=== PATIENT | male | born 1975 | race Caucasian/White ===

== ENCOUNTER 2020-05-29 05:54 | Inpatient (IN) | payer MEDICAID ==
[~2020-05-29] VITALS: Ht 167.6 cm; Wt 81.6 kg
[2020-05-29] MEDS ORDERED: SODIUM CHLORIDE 0.9% 1,000 ML IV ONE ×2 (06:35)
[2020-05-29] MEDS ORDERED: OCTREOTIDE ACETATE 50 MCG/ML 1ML IV STA (06:35)
[2020-05-29] MEDS ORDERED: PANTOPRAZOLE SODIUM 40 MG/VIAL IV STA (06:35)
[2020-05-29] MEDS ORDERED: PANTOPRAZOLE 80 MG in SODIUM CHLORIDE 0.9% 100 ML IV STA (06:35)
[2020-05-29] MEDS ORDERED: OCTREOTIDE 1,000 MCG in SODIUM CHLORIDE 0.9% 100 ML IV STA (06:35)
[2020-05-29] MEDS ORDERED: OCTREOTIDE 1,000 MCG in SODIUM CHLORIDE 0.9% 98 ML IV ONE (06:45)
[2020-05-29] MEDS ORDERED: PANTOPRAZOLE 80 MG in SODIUM CHLORIDE 0.9% 100 ML IV ONE (07:00)
[2020-05-29 07:15] LABS: BASOPHILS % 0.6 % (0.0-2.0); EOSINOPHILS % 0.6 % (0.0-5.0); HEMATOCRIT. 26.7 % (42.0-52.0); HEMOGLOBIN. 9.5 g/dL (14.0-18.0); LYMPHOCYTES % 12.7 % (20.0-50.0); MEAN CORPUSCULAR VOLUME 93.1 fL (80.0-94.0); MONOCYTES % 6.1 % (2.0-8.0); PLATELET 287 x1000/uL (130-400); RED BLOOD CELL COUNT 2.87 mill/uL (4.7-6.1); RED CELL DISTRIBUTION WIDTH 13.5 % (11.6-14.6)
[2020-05-29 07:17] LABS: CHLORIDE 104 mEq/L (98-107)
[2020-05-29 07:20] LABS: INR 1.2; PROTHROMBIN TIME 12.6 sec (9.6-11.0)
[2020-05-29 07:22] LABS: ETHANOL BLOOD < 10 mg/dL
[2020-05-29] MEDS ORDERED: ONDANSETRON HCL 4MG/2ML INJ IV PRN (09:45)
[2020-05-29] MEDS ORDERED: MORPHINE SULFATE 2 MG/ML CPJ (NOT FOR IM USE) IV PRN (09:45)
[2020-05-29] MEDS ORDERED: LORAZEPAM 2MG/ML CPJ IV PRN (09:45)
[2020-05-29] MEDS ORDERED: IOHEXOL-300 100 ML BOTTLE ONE ×2 (10:04→11:07)
[2020-05-29] MEDS: FOLIC ACID 1 MG, THIAMINE HCL 100 MG, MVI, ADULT NO.1 10 ML in DEXTROSE 5% WATER 1,000 ML IV SCH ×4 (10:51)
[2020-05-29 11:04] LABS: CLARITY URINE CLEAR (CLEAR); COLOR URINE YELLOW (YELLOW); KETONES URINE NEGATIVE (NEGATIVE); LEUKOCYTE ESTERASE URINE NEGATIVE (NEGATIVE); NITRITE URINE NEGATIVE (NEGATIVE); OCCULT BLOOD URINE NEGATIVE (NEGATIVE); PROTEIN URINE NEGATIVE (NEGATIVE); SPECIFIC GRAVITY URINE 1.014 (1.005-1.030); UROBILINOGEN URINE 0.2 E.U./dL (0.2-1.0)
[2020-05-29 11:31] LABS: *AMPHETAMINES SCREEN URINE PRESUMTIVE POSITIVE (NEGATIVE); *BARBITURATES SCREEN URINE NEGATIVE (NEGATIVE); *BENZODIAZEPINES SCREEN URINE NEGATIVE (NEGATIVE); *COCAINE SCREEN URINE NEGATIVE (NEGATIVE); METHADONE URINE SCREEN NEGATIVE (NEGATIVE)
[2020-05-29 11:32] LABS: CANNABINOID URINE SCREEN NEGATIVE (NEGATIVE); OPIATES URINE SCREEN NEGATIVE (NEGATIVE); PHENCYCLIDINE URINE SCREEN NEGATIVE (NEGATIVE)
[2020-05-29 12:00] VITALS: BP 108/58
[2020-05-29 16:00] VITALS: BP 118/82
[2020-05-29] MEDS ORDERED: PNEUMOCOCCAL 23-VAL P-SAC VAC 0.5 ML IM ONE (17:45)
[2020-05-29 20:00] VITALS: BP 110/74
[2020-05-29] MEDS: DEXT 5%/0.45% NACL 1000ML 1,000 ML IV SCH (20:44)
[2020-05-30] VITALS: BP 110/75
[2020-05-30 04:00] VITALS: BP 108/68
[2020-05-30] MEDS: DEXT 5%/0.45% NACL 1000ML 1,000 ML IV SCH (05:35)
[2020-05-30 06:38] LABS: CHLORIDE 108 mEq/L (98-107)
[2020-05-30 06:41] LABS: HEMATOCRIT. 21.3 % (42.0-52.0); HEMOGLOBIN. 7.4 g/dL (14.0-18.0); MEAN CORPUSCULAR HEMOGLOBIN 32.8 pg (28.0-32.0); MEAN CORPUSCULAR VOLUME 94.8 fL (80.0-94.0); PLATELET 226 x1000/uL (130-400); RED BLOOD CELL COUNT 2.25 mill/uL (4.7-6.1); RED CELL DISTRIBUTION WIDTH 13.9 % (11.6-14.6)
[2020-05-30 08:00] VITALS: BP 119/79
[2020-05-30 12:00] VITALS: BP 104/70
[2020-05-30 12:53] LABS: PLATELET ESTIMATE NORMAL
[2020-05-30 15:05] LABS: INR 1.1; PROTHROMBIN TIME 11.4 sec (9.6-11.0)
[2020-05-30] MEDS ORDERED: MIDAZOLAM HCL 2 MG/2 ML VIAL ONE (15:22)
[2020-05-30] MEDS ORDERED: PROPOFOL 200MG/20ML VIAL IV ONE (15:22)
[2020-05-30] MEDS ORDERED: SUCCINYLCHOLINE CHLORIDE 200MG/10ML IV ONE (15:23)
[2020-05-30 16:00] VITALS: BP 121/81
[2020-05-30] MEDS: FOLIC ACID 1 MG, THIAMINE HCL 100 MG, MVI, ADULT NO.1 10 ML in DEXTROSE 5% WATER 1,000 ML IV SCH ×4 (17:33)
[2020-05-30 17:43] VITALS: BP 121/81
[2020-05-30] MEDS ORDERED: PANTOPRAZOLE SODIUM 40 MG/VIAL IV SCH (18:00)
[2020-06-01 08:00] VITALS: BP 104/65
[2020-06-01 12:10] VITALS: BP 98/62
[2020-06-01 16:05] VITALS: BP 120/79
== END 2020-05-30 19:00 | disposition home or self-care (01) | DRG 241 ==
LOC: ER 05:54 → 5WST 08:02 → EDBEDREQ 08:12 → CANRESERV 10:58 → ENRESERV 10:58 → EDBEDREQSVC 11:01 → ENRESERV 11:18
PROVIDERS: ADMIT Internal Medicine; ATTEND Internal Medicine
PROC: 0DB68ZX Excision of Stomach, Via Natural or Artificial Opening Endoscopic, Diagnostic (ICD-10-PCS; principal; 2020-05-30)
DX: K29.71 Gastritis, unspecified, with bleeding (principal); R04.0 Epistaxis; D64.9 Anemia, unspecified; E44.0 Moderate protein-calorie malnutrition; F10.20 Alcohol dependence, uncomplicated; K56.699 Other intestinal obstruction unspecified as to partial versus complete obstruction; F17.200 Nicotine dependence, unspecified, uncomplicated; Z71.6 Tobacco abuse counseling; Z68.29 Body mass index [BMI] 29.0-29.9, adult; Z71.51 Drug abuse counseling and surveillance of drug abuser; Z71.41 Alcohol abuse counseling and surveillance of alcoholic
CPT/HCPCS: 36415; 71045; 74018; 74177; 80048; 80053; 80305; 80320; 81003; 82270; 83605; 84484; 85018; 85025; 86850; 86900; 88305; 88313; 90732; 93005; 99291; C9113; J0330; J2250; J2270; J2354; J2405; J2704; J3411; J3490; J7030; J7050; J7070; Q9967; G0480

== ENCOUNTER 2022-11-16 15:59 | Emergency (ER) | payer SELFPAY ==
[~2022-11-16] VITALS: Ht 172.7 cm; Wt 82.0 kg
[2022-11-16] MEDS ORDERED: HYDROCODONE/ACETAMINOPHEN 5/325MG TABLET PO ONE (16:30)
[2022-11-16 19:32] VITALS: BP 170/103
== END 2022-11-16 23:21 | disposition left against medical advice (07) ==
LOC: ER 15:59
DX: M54.2 Cervicalgia (principal); F15.10 Other stimulant abuse, uncomplicated
CPT/HCPCS: 71045; 72070; 72100; 72170; 99284

== ENCOUNTER 2024-10-09 20:33 | Emergency (ER) | payer SELFPAY ==
[~2024-10-09] VITALS: Ht 177.8 cm; Wt 100.0 kg
[2024-10-09 20:38] VITALS: TEMP 98.4; O2SAT 99
[2024-10-09] MEDS: OXYMETAZOLINE HCL NASAL SPRAY 15ML BOTHNSTRLS SCH (23:34)
[2024-10-09 23:40] VITALS: BP 110/75; PULSE 98; RESP 14; O2SAT 100
== END 2024-10-09 23:35 | disposition home or self-care (01) ==
LOC: ER 20:33
DX: R04.0 Epistaxis (principal); F15.10 Other stimulant abuse, uncomplicated
CPT/HCPCS: 99283